=== PATIENT | female | born 1975 | race African-American/Black ===

== ENCOUNTER → 2016-08-10 | Outpatient (CLI) | payer OTHER ==
--- NOTE | 2016-08-10 14:10 | RAD ---
DATE: 08/10/2016 EXAM: DIGITAL DIAGNOSTIC BILATERAL, BREAST RIGHT HISTORY: Right breast lump COMPARISON: None This study was interpreted with the benefit of Computerized Aided Detection (CAD). FINDINGS: Breast Density: SCATTERED The breast parenchyma shows scattered fibroglandular densities. Breast parenchyma level B. There is a well-circumscribed mass identified in the right mid breast. There are no suspicious microvascular calcifications identified. Targeted ultrasound of the right breast at 2:00 position demonstrates a well-circumscribed cyst at 2:00 position containing some debris within. No vascular flow identified IMPRESSION: Cystic structure identified at 2:00 position of the right breast measuring 2 cm probably a cyst containing debris. Probable benign findings. Recommend follow-up ultrasound in 6 months. BI-RADS CATEGORY: 3 PROBABLE BENIGN-SHORT TERM F/U RECOMMENDED FOLLOW-UP: 6M 6 MONTH FOLLOW-UP PQRS compliance statement: Patient information was entered into a reminder system with a target due date 02/10/2017 for the next mammogram. Mammography is a sensitive method for finding small breast cancers, but it does not detect them all and is not a substitute for careful clinical examination. A negative mammogram does not negate a clinically suspicious finding and should not result in delay in biopsying a clinically suspicious abnormality. "Our facility is accredited by the [employer] Mammography [employer]."
== END | disposition home or self-care (01) ==
LOC: MAMMO 12:32
PROVIDERS: ATTEND Nurse Practitioner
DX: N63 Unspecified lump in breast (principal); N60.01 Solitary cyst of right breast
CPT/HCPCS: 76641; G0204; 77066